=== PATIENT | female | born 1945 | race Caucasian/White ===

== ENCOUNTER → 2017-08-07 | Outpatient (CLI) | payer OTHER | LOC: M.RAD 14:00 | DX: M25.572 Pain in left ankle and joints of left foot (principal); M79.89 Other specified soft tissue disorders ==

== ENCOUNTER → 2017-11-28 | Outpatient (CLI) | payer OTHER ==
--- NOTE | 2017-11-28 14:11 | 2DMMODE ---
[place] [address] 2 D/M-MODE ECHOCARDIOGRAM Name: PATTI DE PAZ Room: [facility]#: [id number] Admission: 11/28/17 Attend Phys: Tang Santos, Discharge: Date of : 45 Date of Service: 11/28/17 1411 Report #: [id number] THIS REPORT FOR: //name// APPROVED REPORT Study performed: 11/28/2017 10:09:51 EXAM: Comprehensive 2D, Doppler, and color-flow Echocardiogram Patient Location: Out-Patient Status: routine BSA: 1.84 HR: 91 bpm BP: 119/60 mmHg Other Information Study Quality: Good Indications Peripheral Edema 2D Dimensions LVEF(%): 53.90 (>50%) IVSd: 10.82 (7-11mm) LVOT Diam: 20.55 (18-24mm) LVDd: 41.33 mm PWd: 10.34 (7-11mm) Ascending Ao: 25.93 (22-36mm) LVDs: 29.95 (25-40mm) Aortic Root: 23.49 mm Pompa's LVEF: 53.90 % Volumes Left Atrial Volume (Systole) LA ESV Index: 14.40 mL/m2 Aortic Valve AoV Peak Ramon.: 1.41 m/s AO Peak Gr.: 7.90 mmHg LVOT Max P.02 mmHg AO Mean Gr.: 4.07 mmHg LVOT Mean P.05 mmHg LVOT Max V: 1.12 m/s AO V2 VTI: 28.23 cm LVOT Mean V: 0.64 m/s FIOR (VTI): 2.75 cm2 LVOT V1 VTI: 23.38 cm Mitral Valve E/A Ratio: 0.93 MV Decel. Time: 188.55 [place] [address] 2 D/M-MODE ECHOCARDIOGRAM Name: PATTI DE PAZ Room: [facility]#: [id number] Admission: 11/28/17 Attend Phys: Tang Santos, Discharge: Date of : 45 Date of Service: 11/28/17 1411 Report #: [id number] MV E Max Ramon.: 0.84 m/s MV PHT: 54.68 ms MVA (PHT): 4.02 cm2 TDI E/Lateral E': 8.40 E/Medial E': 8.40 Medial E' Ramon.: 0.10 m/s Lateral E' Ramon.: 0.10 m/s Pulmonary Valve PV Peak Ramon.: 0.96 m/s PV Peak Gr.: 3.68 mmHg Tricuspid Valve TR Peak Gr.: 28.14 mmHg RVSP: 33.14 mmHg Left Ventricle The left ventricle is normal size. There is normal LV segmental wall motion. There is normal left ventricular wall thickness. Left ventricular systolic function is normal. LVEF is 55-60%. Transmitral Doppler flow pattern suggests impaired LV relaxation. Right Ventricle The right ventricle is normal size. The right ventricular systolic function is normal. Atria The left atrium size is normal. The right atrium size is normal. Aortic Valve The aortic valve is normal in structure. No aortic regurgitation is present. There is no aortic valvular stenosis. Mitral Valve The mitral valve is normal in structure. Trace mitral regurgitation. No evidence of mitral valve stenosis. Tricuspid Valve The tricuspid valve is normal in structure. Mild tricuspid regurgitation. The RVSP is 33.1 mmHg. Pulmonic Valve The pulmonary valve is normal in structure. There is no pulmonic valvular regurgitation. [place] [address] 2 D/M-MODE ECHOCARDIOGRAM Name: PATTI DE PAZ Room: [facility]#: [id number] Admission: 11/28/17 Attend Phys: Tang Santos, Discharge: Date of : 45 Date of Service: 11/28/17 1411 Report #: [id number] The aortic root is normal in size. IVC is normal in size and collapses with >50% inspiration Pericardium There is no pericardial effusion. <Conclusion> The left ventricle is normal size. There is normal left ventricular wall thickness. Left ventricular systolic function is normal. LVEF is 55-60%. Transmitral Doppler flow pattern suggests impaired LV relaxation. Mild tricuspid regurgitation. The RVSP is 33.1 mmHg. <ELECTRONICALLY SIGNED> By: Ncio Arredondo MD, FACC 11/28/17 1411 [id number] Nico Arredondo MD, FACC /INF
== END ==
LOC: M.CRD 11-21 10:00
DX: I07.1 Rheumatic tricuspid insufficiency (principal); G25.81 Restless legs syndrome

== ENCOUNTER → 2018-01-26 | Outpatient (CLI) | payer OTHER | LOC: M.ULTRA 13:05 | DX: M79.662 Pain in left lower leg (principal); M79.672 Pain in left foot; M79.89 Other specified soft tissue disorders ==

== ENCOUNTER → 2020-02-28 | Outpatient (CLI) | payer MEDICARE, BC | LOC: M.ULTRA 16:25 | PROVIDERS: ATTEND Registered Nurse Diabetes Educator | DX: M79.89 Other specified soft tissue disorders (principal); L53.9 Erythematous condition, unspecified; M79.605 Pain in left leg ==

== ENCOUNTER → 2020-04-16 | Outpatient (CLI) | payer MEDICARE, BC | LOC: M.RAD 12:19 | PROVIDERS: ATTEND Internal Medicine | DX: J84.10 Pulmonary fibrosis, unspecified (principal); J44.9 Chronic obstructive pulmonary disease, unspecified ==